=== PATIENT | male | born 1965 | race Caucasian/White ===

== ENCOUNTER 2016-12-05 16:08 | Emergency (ER) | payer OTHER ==
[2016-12-05 16:23] VITALS: BP 151/79
[2016-12-05] MEDS ORDERED: Tetan/Diph/Pertus SYR(Tdap)* 0.5 ML SYR(BOOSTRIX) use SYR IM ONE (16:48)
[2016-12-05] MEDS ORDERED: Lidocaine 2% PF * 5 ML VIAL ONE (17:01)
--- NOTE | 2016-12-05 17:30 | RAD ---
INDICATION: Laceration. Right foot injury COMPARISON: None TECHNIQUE: AP, lateral, and oblique views were obtained. FINDINGS: There is no acute fracture or dislocation. There is no significant radiographic evidence of soft tissue injury. Incidental note is made of a Achilles calcaneal spur. IMPRESSION: NO ACUTE FRACTURE OR FOREIGN BODY.
[2016-12-05] MEDS ORDERED: Cephalexin CAP* 500 MG PO ONE ×2 (18:23→18:24)
[2016-12-05] MEDS ORDERED: HYDROcodone/ACETAMIN 5-325 MG* 1 TAB PO ONE (18:25)
--- NOTE | 2016-12-06 00:20 | UC ---
Mariela Kim Erika, scribed for Elena Lucia MD on 12/05/16 at 1708 . Laceration HPI - HPI Summary HPI Summary: Patient is a 51-year-old male presenting to [facility] with a CC of laceration to the right foot at 16:00 today. Patient reports that he was chopping wood when he swung his axe and missed, and the axe went cleanly through his right shoe and onto the top of his foot. The axe was fully intact on removal. Pt is unaware of any debris left in the foot. Pt is unsure of his most recent tetanus vaccine. Pt denies taking blood thinners or other medication. FHx colon cancer, lung cancer. Pt has never smoked. - History Of Current Complaint Chief Complaint: UCLowerExtremity Stated Complaint: FOOT LAC Time Seen by Provider: 12/05/16 16:45 Hx Obtained From: Patient, Family/Internet Marketer - Laceration Location: Foot - right Mechanism Of Injury: Sharp Trauma Onset/Duration: Sudden Onset, Lasting Hours, Still Present Severity: Moderate Pain Intensity: 4 Pain Scale Used: 0-10 Numeric - Allergies/Home Medications Allergies/Adverse Reactions: Allergies Allergy/AdvReac Type Severity Reaction Status Date / Time Latex Allergy Intermediate Hives Verified 12/05/16 16:15 Iodine Allergy Rash Verified 11/25/14 09:24 PMH/Surg Hx/FS Hx/Imm Hx Previously Healthy: Yes - Surgical History Surgical History: Yes Surgery Procedure, Year, and Place: Bilateral inguinal hernia repair with mesh - Family History Known Family History: Positive: Other - Colon cancer, lung cancer - Social History Occupation: Employed Full-time Lives: With Family Alcohol Use: Weekly Substance Use Type: None Smoking Status (MU): Never Smoked Tobacco Have You Smoked in the Last Year: No Review of Systems Constitutional: Negative Skin: Other - laceration to the right foot Motor: Negative Neurovascular: Negative Musculoskeletal: Negative Psychological: Negative All Other Systems Reviewed And Are Negative: Yes Physical Exam Triage Information Reviewed: Yes Appearance: Well-Appearing, Well-Nourished, Pain Distress Vital Signs: Initial Vital Signs Temp 97.1 F 12/05/16 16:16 Pulse 100 12/05/16 16:16 Resp 18 12/05/16 16:16 BP 151/79 12/05/16 16:16 Pulse Ox 100 12/05/16 16:16 elevated BP noted Vital Signs Reviewed: Yes Eyes: Positive: Conjunctiva Clear ENT: Positive: Normal ENT inspection Neck: Positive: Supple Respiratory: Positive: No respiratory distress Cardiovascular: Positive: RRR, Pulses Normal, Brisk Capillary Refill Musculoskeletal: Positive: Strength Intact, ROM Intact Neurological: Positive: Alert, Muscle Tone Normal Psychological Exam: Normal Skin Exam: Other - 4 cm long, deep laceration to the right foot - @ dorsum of the foot between the 2nd and 3rd metatarsals Laceration Repair - Laceration Repair 1 Description: Linear Laceration Size After Repair: Length (cm) - 4, Width (mm) - 3, Depth (mm) - 5 Type Injection: Local Anesthesia Used: 2.0% Lido Irrigation With Pressure Irrigation Device: Yes Closure Material: Sutures - 10 Closure Method: Single Layer Suture Of: Skin Suture Type: Nylon - 4.0 Diagnostics - Radiology R Foot XR Radiology Interpretation Completed By: Radiologist - IMPRESSION: NO ACUTE FRACTURE OR FOREIGN BODY. Laceration Course/Dx - Differential Dx - Laceration/Wound Differental Diagnoses: Laceration, Tendon Laceration Provider Diagnoses: 1. Foot laceration. 2. Tetanus update Discharge - Discharge Plan Condition: Stable Disposition: HOME Prescriptions: Cephalexin CAP* [Keflex 500 CAP*] 500 mg PO QID #40 cap Patient Education Materials: Care For Your Stitches (ED), Crutch Instructions ( ED), Laceration (ED) Referrals: Luis Manuel Mcelroy MD [Primary Care Provider] - Aisha Burnett MD [Medical Doctor] - 2 Days Additional Instructions: Your xray did not show any xray or foreign body. We gave your first dose of cephalexin 500mg at 6:30 pm tonight. It should be taken every 6 hrs or 4 times a day. We dispensed 2 tablets of hydrocodone 5mg/325 acetaminophen for home use. You may take 1 every 4 hrs as needed for pain. Use crutches with non weight bearing until you are cleared by the orthopedist. Call the orthopedist to be seen on 12/07/16 or 12/08/16. Return to urgent care if any new or worsening symptoms. The documentation as recorded by the Mariela mclaughlin Erika accurately reflects the service I personally performed and the decisions made by , Elena Lucia MD.
== END 2016-12-05 19:00 | disposition home or self-care (01) ==
LOC: UCEAST 16:08
DX: S91.311A Laceration without foreign body, right foot, initial encounter (principal); W27.0XXA Contact with workbench tool, initial encounter; Y93.89 Activity, other specified; Y92.9 Unspecified place or not applicable; Z23 Encounter for immunization
CPT/HCPCS: 12002; 90471; 90715; 99214; A9270-GY; G0463

== ENCOUNTER 2018-08-06 08:59 | Emergency (ER) | payer OTHER ==
[2018-08-06 09:06] VITALS: BP 112/75
--- NOTE | 2018-08-06 09:34 | UC ---
Skin Complaint HPI - HPI Summary HPI Summary: In Room Note: The patient is a 53 y/o M presenting to [facility] with a chief complaint of an itchy , warm, and erythematous round rash on the left upper arm starting 08/01/18. Two days before he noticed the rash, he was at [facility] where he thinks he was bitten by a mosquito because he noticed a bite, despite usually not getting mosquito bites. At time of bite, he did not notice any erythema, but he itched the bite, and it became erythematous a few days later. There is no pain associated. He reports two incidents that have resolved of feeling warm and feverish with a headache, but he did not check his temperature. The rash has gotten supervisor pairing and inspecting in color since onset, but the size has not changed. There is no pain in the axilla. He has not been hospitalized for anything such as heart, liver, or lung problems. He does not have FHx of HTN, diabetes, or cardiac disease. He is allergic to iodine and latex and also may be allergic to penicillin because his father is, but he has never tried it. He has taken Doxycycline in the past for treatment of Lyme Disease. MD Note: Vital signs stable. Visit history: noncontributory to present complaint. No medications. Nurse's Note: left upper arm bug bite worsening - History of Current Complaint Chief Complaint: UCRash Stated Complaint: BUG BITE Hx Obtained From: Patient Onset/Duration: Sudden Onset, Lasting Days - started a week ago, Still Present Skin Exposure Onset/Duration: Days Ago Timing: Constant Onset Severity: Mild Current Severity: Mild Pain Intensity: 0 Pain Scale Used: 0-10 Numeric Location: Other - left upper arm Character: Redness Aggravating Factor(s): Nothing Alleviating Factor(s): Nothing Associated Signs & Symptoms: Positive: Fever - feeling feverish without taking temp, Rash - erythematous and warm Related History: Possible Reaction to: Insect - mosquito bite - Allergy/Home Medications Allergies/Adverse Reactions: Allergies Allergy/AdvReac Type Severity Reaction Status Date / Time iodine Allergy hive Verified 08/06/18 09:03 latex Allergy Hives Verified 08/06/18 09:02 Review of Systems Constitutional: Fever - two episodes of feeling feverish, but temp not taken Skin: Rash - itchy, erythematous [place] on the right upper arm, Other - warmness of Eyes: Negative ENT: Negative Respiratory: Negative Cardiovascular: Negative Gastrointestinal: Negative Genitourinary: Negative Motor: Negative Neurovascular: Negative Musculoskeletal: Negative Neurological: Negative Psychological: Negative All Other Systems Reviewed And Are Negative: Yes - Comments Additional Review of Systems Comments: POSITIVE: two episodes of feeling feverish, but temp not taken, itchy and erythematous [place] on the right upper arm, warm to touch, headache PMH/Surg Hx/FS Hx/Imm Hx Endocrine History: Other Other Endocrine History: NEGATIVE: diabetes Cardiovascular History: Other Other Cardiovascular History: NEGATIVE: HTN - Surgical History Surgical History: Yes Surgery Procedure, Year, and Place: Bilateral inguinal hernia repair with mesh - Family History Known Family History: Positive: Other - Colon cancer, lung cancer - Social History Alcohol Use: Weekly Substance Use Type: None Smoking Status (MU): Never Smoked Tobacco Have You Smoked in the Last Year: No Physical Exam - Summary Physical Exam Summary: Appearance: The patient is well-appearing, is in no pain distress, and is well- nourished. Eyes: Conjunctiva are clear. ENT: The hearing is grossly normal, the pharynx is normal, and the TMs are normal. There is no muffled or hoarse voice. Neck: The neck is supple and there is no lymphadenopathy. Respiratory: The chest is nontender. The lungs are clear, there are normal breath sounds, and there is no respiratory distress. Cardiovascular: Heart is regular rate and rhythm. There is no murmur. Abdomen: The abdomen is soft and nontender. There is no organomegaly. Bowel sounds: present Musculoskeletal: Strength is intact. The patient moves all extremities. Neurological: The patient is alert. Motor and sensory examination grossly intact. Psychological: The patient displays age appropriate behavior Skin: Examination of the right upper extremity shows a 5cm by 5cm rough erythematous [place] with no ascending cellulitis lymphangitis that is pruritic, slightly warm, nontender, and not swollen. In the center of this rash is a small skin violation which is the presumed bite site. Triage Information Reviewed: Yes Vital Signs: Initial Vital Signs Temp 98 F 08/06/18 09:03 Pulse 83 08/06/18 09:03 Resp 18 08/06/18 09:03 BP 112/75 08/06/18 09:03 Pulse Ox 100 08/06/18 09:03 Vital Signs Reviewed: Yes Course/Dx - Course Course Of Treatment: Healthy 53 y/o M with an erythematous eruption on his left arm. A 12 point review of systems was completed and significantly positive for: warm, itchy erythematous round rash on upper left arm. The remainder of the review was negative except as stated above in the HPI. I discussed with the patient, this could either be an allergic response to insect bite or cellulitis. I will start him on Doxycycline for five days. Patient has been given an antibiotic because of findings on physical examination and health history. The risks and benefits of antibiotic treatment have been discussed and patient has voiced understanding of these risks including the possibility of developing clostridium difficile enterocolitis. Medications have been included in the original chart and reviewed. Normal BP reading and no follow-up instructions required. - Differential Diagnoses - Skin Complaint Differential Diagnoses: Other - allergic reaction to bug bite versus superficial cellulitis - Diagnoses Provider Diagnoses: cellulitis Discharge - Sign-Out/Discharge Documenting (check all that apply): Patient Departure - Patient will be discharged home. All imaging exams completed and their final reports reviewed: No Studies - Discharge Plan Condition: Stable Disposition: HOME Prescriptions: DOXYcycline CAP(*) [DOXYcycline 100MG CAP(*)] 100 mg PO BID #10 cap MDD 2 pills Patient Education Materials: Cellulitis (DC) Referrals: Luis Manuel Mcelroy MD [Primary Care Provider] - Additional Instructions: PLEASE SEEK CARE AT THE EMERGENCY DEPARTMENT IF SYMPTOMS WORSEN OR IF NEW SYMPTOMS DEVELOP. FOLLOW UP WITH YOUR PRIMARY CARE PHYSICIAN. WE DISCUSSED: This could be a simple, resolving allergic reaction or a superficial skin infection. Take doxycyline for 5 days, twice a day. Watch for any spreading redness, swelling or pain. - Billing Disposition and Condition Condition: STABLE Disposition: Home - Attestation Statements Document Initiated by Erin: Yes Documenting Scribe: Nuha Jaramillo Provider For Whom Erin is Documenting (Include Credential): Dr. Isaias Torres MD Scribe Attestation: Nuha Kim scribed for Dr. Isaias Torres MD on 08/06/18 at 1424. Scribe Documentation Reviewed: Yes Provider Attestation: The documentation as recorded by the Nuha mclaughlin accurately reflects the service I personally performed and the decisions made by me, Dr. Isaias Torres MD
== END 2018-08-06 09:37 | disposition home or self-care (01) ==
LOC: UCEAST 08:59
DX: L03.114 Cellulitis of left upper limb (principal); Z88.8 Allergy status to other drugs, medicaments and biological substances; Z91.040 Latex allergy status
CPT/HCPCS: 99212; G0463